=== PATIENT | female | born 1990 | race Two or more races ===

== ENCOUNTER 2019-11-09 08:16 | Emergency (ER) | payer OTHER ==
[~2019-11-09] VITALS: Ht 160 cm; Wt 69.4 kg
[2019-11-09 08:24] VITALS: BP 131/83
--- NOTE | 2019-11-09 08:32 | NUR ---
DR. CELESTIN AT BEDSIDE FOR EVAL.
== END 2019-11-09 09:00 | disposition home or self-care (01) ==
LOC: ER 08:20
DX: S43.422A Sprain of left rotator cuff capsule, initial encounter (principal); W01.0XXA Fall on same level from slipping, tripping and stumbling without subsequent striking against object, initial encounter; Y93.89 Activity, other specified; Y92.89 Other specified places as the place of occurrence of the external cause; Y99.8 Other external cause status